=== PATIENT | female | born 1960 | race Caucasian/White ===

== ENCOUNTER → 2022-01-15 08:06 | Outpatient (BNVA) | payer OTHER, SELFPAY | PROVIDERS: Visit Provider Specialist | DX: M25.511 Pain in right shoulder (principal); M77.8 Other enthesopathies, not elsewhere classified | CPT/HCPCS: 73030 ==

== ENCOUNTER 2022-01-15 09:43 | Outpatient (CLI) | payer OTHER, SELFPAY ==
[2022-01-15 10:52] LABS: Erythrocyte Sedimentation Rate 39 mm/hr (0-15)
[2022-01-15 10:53] LABS: Alanine Aminotransferase 20 U/L (0-33); Albumin Level 4.3 g/dL (3.5-5.2); Alkaline Phosphatase 84 IU/L (35-105); Aspartate Amino Transferase 21 U/L (0-32); Blood Urea Nitrogen 12 mg/dL (6-20); C Reactive Protein 3.4 mg/L (0.0-4.9); Calcium 9.7 mg/dL (8.5-10.5); Carbon Dioxide 22 mmol/L (22-29); Chloride 101 mmol/L (98-107); Globulin 3.9 g/dL (1.3-4.6); Glomerular Filtration Rate 126.3 mL/min (90-130); Glucose 125 mg/dL (65-115); Osmolality Calculated 283 mOsm/kg (285-295); Sodium 136 mmol/L (136-145); Total Bilirubin 0.2 mg/dL (0.15-1.2); Total Protein 8.2 g/dL (6.6-8.7)
[2022-01-15 10:54] LABS: Anion Gap 17.2 (5-19); Potassium 4.2 mmol/L (3.5-5.1)
[2022-01-16 12:43] LABS: Cyclic Citrullinated Peptide <16 UNITS
[2022-01-16 14:37] LABS: COMPLEMENT COMPONENT C3C 152 mg/dL (83-193); COMPLEMENT COMPONENT C4C 19 mg/dL (15-57)
[2022-01-17 10:59] LABS: CENTROMERE B ANTIBODY <1.0 NEG AI (<1.0 NEG); JO-1 ANTIBODY <1.0 NEG AI (<1.0 NEG); RNP ANTIBODY <1.0 NEG AI (<1.0 NEG); SCL-70 ANTIBODY <1.0 NEG AI (<1.0 NEG); SJOGREN'S ANTIBODY (SS-A) <1.0 NEG AI (<1.0 NEG); SM ANTIBODY <1.0 NEG AI (<1.0 NEG); SS-B <1.0 NEG AI (<1.0 NEG)
[2022-01-17 14:32] LABS: THYROID PEROXIDASE ANTIBODIES 1 IU/mL (<9)
[2022-01-17 14:53] LABS: COMPLEMENT, TOTAL (CH50) >60 U/mL (31-60)
[2022-01-18 11:43] LABS: ANA PATTERN Nuclear, Speckled; ANA SCREEN, IFA POSITIVE (NEGATIVE)
[2022-01-20 15:53] LABS: DNA AB (DS) CRITHIDIA,IFA NEGATIVE (NEGATIVE)
== END 2022-01-15 09:44 | disposition home or self-care (01) ==
PROVIDERS: Visit Provider Specialist
DX: M19.011 Primary osteoarthritis, right shoulder (principal)
CPT/HCPCS: 80053; 85651; 86140; 86160; 86162; 86200; 86235; 86255; 86376; 86431